=== PATIENT | male | born 1935 | race Caucasian/White ===

== ENCOUNTER 2018-06-15 11:56 | Inpatient (IN) | payer OTHER, MEDICARE ==
--- NOTE | 2018-06-15 12:11 | PDOC ---
History of Present Illness - General Chief Complaint: Weakness Stated Complaint: AMS Time Seen by Provider: 06/15/18 12:10 History Source: Patient, Family Exam Limitations: Dementia - History of Present Illness Initial Comments: 06/15/18 12:40 82 year old male with PMH lewy body dementia, HTN, HLD, atrial fibrillation on Xarelto, BPH, urinary incontinence, CHF, PVD presented to ED for AMS x4 hours. Per pt awoke this morning at 0600 more confused than normal and using more support with walking than normal, she put him back to sleep and then when he awoke again at 0900 he was still altered. She stated his baseline is alert and oriented to person and place, ambulates unassisted with a cane. Pt's admitted to increased urinary frequency, denied dysuria. stated that pt returned to mental baseline when EMS arrived at 1100 today. Pt and denied chest pain, shortness of breath, abdominal pain, nausea, vomiting, cough, blood in stool, weakness, numbness. Allergies: NKDA Past History - Past Medical History Allergies/Adverse Reactions: Allergies Allergy/AdvReac Type Severity Reaction Status Date / Time No Known Allergies Allergy Verified 06/15/18 12:18 Home Medications: Ambulatory Orders Atorvastatin Ca [Lipitor] 10 mg PO HS 06/15/18 Donepezil HCl [Aricept -] 10 mg PO DAILY 06/15/18 Lisinopril [Zestril] 5 mg PO DAILY 06/15/18 Memantine HCl [Namenda -] 10 mg PO BID 06/15/18 Metoprolol Succinate [Toprol Xl] 25 mg PO HS 06/15/18 Metoprolol Succinate [Toprol Xl] 50 mg PO DAILY 06/15/18 Rivaroxaban [Xarelto -] 20 mg PO DAILY 06/15/18 Spironolactone [Aldactone] 25 mg PO DAILY 06/15/18 Tamsulosin HCl [Flomax] 0.8 mg PO DAILY 06/15/18 Anemia: No Asthma: No Cardiac Disorders: Yes (A-FIB) COPD: No CHF: Yes Dementia: (Mild Alzhimer) GI Disorders: Yes (VENTRAL HERNIA) Disorders: Yes (BPH) HTN: Yes Hypercholesterolemia: Yes - Surgical History Cardiac Surgery: Yes (CARDIAC ABLATION JUN 2006) - Immunization History Td Vaccination: Yes TDAP Vaccination: Yes Immunization Up to Date: Yes - Suicide/Smoking/Psychosocial Hx Smoking Status: No Smoking History: Never smoked Number of Cigarettes Smoked Daily: 0 Hx Alcohol Use: Yes (social) Drug/Substance Use Hx: No Substance Use Type: None Review of Systems - Review of Systems Able to Perform ROS?: Yes Comments:: 06/15/18 13:18 General: admitted to generalized weakness. denied fever, chills, night sweats. HEENT: denied sore throat, rhinorrhea, ear pain. Heart: denied chest pain, palpitations, syncope, lower extremity swelling, diaphoresis. Respiratory: denied shortness of breath, cough, sputum production, hemoptysis. Abdomen: denied abdominal pain, nausea, vomiting, diarrhea, constipation, blood in stool. : admitted to increased urinary frequency, urinary incontinence. denied dysuria, hematuria, flank pain. Back: denied back pain. Musculoskeletal: denied joint pain, muscle pain, joint swelling. Neurological: admitted to AMS. denied headache, dizziness, numbness, tingling, weakness. Skin: denied rash, laceration, abrasion. *Physical Exam - Physical Exam Comments: 06/15/18 13:19 Constitutional: Well-nourished, Well-developed, appearing stated age. HEENT: head is normocephalic, atraumatic. EOMI. PERRLA. Neck: supple. Full ROM. Heart: regular rhythm. no murmurs, rubs or gallops. Lungs: clear to auscultation bilaterally. no crackles, rhonchi or wheezing. no stridor. Abdomen: soft, nontender. increased bowel sounds. no rebound, guarding, masses. Extremities: Peripheral pulses intact. No lower extremity edema. Neurological: Alert. Oriented x3. CN2-12 intact. 5/5 strength all extremities. Full sensation all extremities and bilateral face. Finger to nose normal. Gait normal. Psych: awake, alert, oriented x3. Follows commands. Answers questions appropriately. ED Treatment Course - LABORATORY CBC & Chemistry Diagram: 06/16/18 05:45 06/16/18 05:45 Medical Decision Making - Medical Decision Making 06/15/18 13:20 82 year old male with above PMH presented to ED for 4 hours of AMS associated with generalized weakness and increased urinary frequency. Initial Vital Signs Temp Pulse Resp BP Pulse Ox 98.4 F 85 16 110/57 L 98 06/15/18 12:00 06/15/18 12:00 06/15/18 12:00 06/15/18 12:00 06/15/18 12:00 Afebrile. No tachycardia. No tachypnea. Mild hypotension. No hypoxia on room air. Labs ordered: CBC, CMP, cardiac enzymes Imaging ordered: CXR, CT head Medications ordered: normal saline bolus 500 cc EKG performed at 1315: rate 60, irregularly irregular, left axis, normal intervals, lateral T wave flattening. Precordial lateral flattening was seen in EKG 05/21/16. CXR report: cardiomegaly. congestive changes. CBC WBC 6.3 K/mm3 (4.0-10.0) 06/15/18 13:15 RBC 4.25 M/mm3 (4.00-5.60) 06/15/18 13:15 Hgb 12.3 GM/dL (11.7-16.9) 06/15/18 13:15 Hct 39.4 % (35.4-49) 06/15/18 13:15 MCV 92.6 fl (80-96) 06/15/18 13:15 MCH 28.9 pg (25.7-33.7) 06/15/18 13:15 MCHC 31.2 g/dl (32.0-35.9) L 06/15/18 13:15 RDW 13.7 % (11.9-15.9) 06/15/18 13:15 Plt Count 143 K/MM3 (134-434) 06/15/18 13:15 MPV 9.1 fl (7.5-11.1) D 06/15/18 13:15 Absolute Neuts (auto) 4.8 K/mm3 (1.5-8.0) 06/15/18 13:15 Neutrophils % 75.4 % (42.8-82.8) 06/15/18 13:15 Lymphocytes % 13.2 % (8-40) 06/15/18 13:15 Monocytes % 9.8 % (3.8-10.2) 06/15/18 13:15 Eosinophils % 1.2 % (0-4.5) 06/15/18 13:15 Basophils % 0.4 % (0-2.0) 06/15/18 13:15 Nucleated RBC % 0 % (0-0) 06/15/18 13:15 No leukocytosis. No anemia. No thrombocytopenia. CMP Sodium 139 mmol/L (136-145) 06/15/18 13:15 Potassium 5.0 mmol/L (3.5-5.1) 06/15/18 13:15 Chloride 104 mmol/L (98-107) 06/15/18 13:15 Carbon Dioxide 30 mmol/L (21-32) 06/15/18 13:15 Anion Gap 5 MMOL/L (8-16) L 06/15/18 13:15 BUN 21 mg/dL (7-18) H 06/15/18 13:15 Creatinine 0.8 mg/dL (0.55-1.3) 06/15/18 13:15 Creat Clearance w eGFR > 60 (>60) 06/15/18 13:15 Random Glucose 62 mg/dL (74-106) L 06/15/18 13:15 Calcium 8.9 mg/dL (8.5-10.1) 06/15/18 13:15 Total Bilirubin 0.5 mg/dL (0.2-1) 06/15/18 13:15 AST 32 U/L (15-37) 06/15/18 13:15 ALT 38 U/L (13-61) 06/15/18 13:15 Alkaline Phosphatase 82 U/L (45-117) 06/15/18 13:15 Creatine Kinase 290 IU/L (26-308) 06/15/18 13:15 Troponin I 0.04 ng/ml (0.00-0.05) 06/15/18 13:15 B-Natriuretic Peptide 2141.7 pg/ml (5-450) H 06/15/18 13:15 Total Protein 6.2 g/dl (6.4-8.2) L 06/15/18 13:15 Albumin 3.4 g/dl (3.4-5.0) 06/15/18 13:15 TSH 1.70 uIU/ml (0.358-3.74) D 06/15/18 13:15 No clinically concerning electrolyte abnormalities. No transaminitis. No BERTA. BUN/Cr>20. - Normal saline 500 cc was ordered CK elevated. Trop 0.04. Mild hypoglycemia. - Pt given orange juice No clinically concerning transaminitis. Mildly elevated BNP. Lower than prior. Normal TSH. Urine Test Results Urine Color Yellow 06/15/18 13:15 Urine Appearance Clear 06/15/18 13:15 Urine pH 6.0 (5.0-8.0) 06/15/18 13:15 Ur Specific [place] 1.021 (1.010-1.035) 06/15/18 13:15 Urine Protein Negative (NEGATIVE) 06/15/18 13:15 Urine Glucose (UA) Negative (NEGATIVE) 06/15/18 13:15 Urine Ketones Negative (NEGATIVE) 06/15/18 13:15 Urine Blood Negative (NEGATIVE) 06/15/18 13:15 Urine Nitrite Negative (NEGATIVE) 06/15/18 13:15 Urine Bilirubin Negative (<2.0 mg/dL) 06/15/18 13:15 Ur Leukocyte Esterase Trace (NEGATIVE) 06/15/18 13:15 Ur Epithelial Cells Moderate /HPF (FEW) 06/15/18 13:15 Urine Bacteria Rare /hpf (NONE SEEN) 06/15/18 13:15 Urine Mucus Rare 06/15/18 13:15 WBC=5 No evidence of UTI. 06/15/18 15:11 Pt son's now arrived, stated over the last 10 days patient has been becoming increasingly generally weak, has began to defecate on himself. They stated he has been waxing and waning in his mental status, and they would like him to be admitted to be evaluated for placement in a nursing facility. 06/15/18 16:49 CT head report: moderate volume loss and ventricular dilation. moderate periventricular chronic microvascular ischemic changes. multiple lucent foci in the superior sagittal sinus, posterioly suspicious for air. no mass lesion, gross acute infarct, or ICH. no midline shift. 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 - No neck stiffness or neck pain - No headache - Pt does not clinically appear to have meningitis. No need for LP at this time. - Unknown source of air. 06/15/18 17:49 Admitting team requests abdominal XR for constipation. Above ordered. Repeat EKG at 1733: rate 64, irregularly irregular rhythm, left axis, no acute ST changes from prior. - Pending repeat cardiac enzymes. Repeat troponin 0.04. *DC/Admit/Observation/Transfer Diagnosis at time of Disposition: Generalized weakness, Lewy body dementia, Altered mental status - Discharge Dispostion Condition at time of disposition: Stable Decision to Admit order: Yes - Referrals - Patient Instructions - Post Discharge Activity
[2018-06-15 12:17] VITALS: BMI 26.1
[2018-06-15] MEDS ORDERED: SODIUM CHLORIDE 1,000 ML IV STA (13:21)
[2018-06-15 13:45] LABS: BASO % 0.4 % (0-2.0); EOS % 1.2 % (0-4.5); HEMATOCRIT 39.4 % (35.4-49); HEMOGLOBIN 12.3 GM/dL (11.7-16.9); LYMPH % 13.2 % (8-40); MCH 28.9 pg (25.7-33.7); MCHC 31.2 g/dl (32.0-35.9); MEAN CELL VOLUME 92.6 fl (80-96); MEAN PLT VOLUME 9.1 fl (7.5-11.1); MONO % 9.8 % (3.8-10.2); NEUT % 75.4 % (42.8-82.8); PLATELET COUNT 143 K/MM3 (134-434); RBC 4.25 M/mm3 (4.00-5.60); RDW 13.7 % (11.9-15.9); WHITE BLOOD COUNT 6.3 K/mm3 (4.0-10.0)
--- NOTE | 2018-06-15 13:55 | PDOC ---
Attending Attestation - Resident Resident Name: Ángela Chris - ED Attending Attestation I have performed the following: I have examined & evaluated the patient, The case was reviewed & discussed with the resident, I agree w/resident's findings & plan, Exceptions are as noted - HPI HPI: 82 yo M history dementia, HTN, HL, atrial fibrillation, BPH, CHF, PVD presents with AMS for 4 hours. As per patient was confused this morning. He is back at baseline at present. He has had increased urinary frequency recently. No other complaints. - Physicial Exam PE: GENERAL: Awake, alert, and fully oriented, in no acute distress HEAD: No signs of trauma EYES: PERRLA, EOMI, sclera anicteric, conjunctiva clear ENT: Auricles normal inspection, hearing grossly normal, nares patent, oropharynx clear without exudates. Moist mucosa NECK: Normal ROM, supple, no lymphadenopathy, JVD, or masses LUNGS: Breath sounds equal, clear to auscultation bilaterally. No wheezes, and no crackles HEART: Regular rate and rhythm, normal S1 and S2, no murmurs, rubs or gallops ABDOMEN: Soft, nontender, normoactive bowel sounds. No guarding, no rebound. No masses EXTREMITIES: Normal range of motion, no edema. No clubbing or cyanosis. No cords, erythema, or tenderness NEUROLOGICAL: Cranial nerves II through XII grossly intact. Normal speech. Motor and sensation intact. SKIN: Warm, Dry, normal turgor, no rashes or lesions noted. - Medical Decision Making Pt with AMS, recent inc urinary frequency. Patient is poor historian at baseline , most of history obtained from his . Will obtain AMS workup including labs , CXR, CTH, and UA.
[2018-06-15 14:00] LABS: INR 1.06 (0.83-1.09); PROTHROMBIN TIME (PATIENT) 12.5 SEC (9.7-13.0)
[2018-06-15 14:03] LABS: ACTIVATED PTT 30.1 SECONDS (25.2-36.5)
[2018-06-15 14:21] LABS: ALBUMIN 3.4 g/dl (3.4-5.0); ALK PHOS 82 U/L (45-117); ANION GAP 5 MMOL/L (8-16); BILIRUBIN,TOTAL 0.5 mg/dL (0.2-1); BLOOD UREA NITROGEN 21 mg/dL (7-18); CALCIUM 8.9 mg/dL (8.5-10.1); CHLORIDE 104 mmol/L (98-107); CO2 30 mmol/L (21-32); CREATININE 0.8 mg/dL (0.55-1.3); GLUCOSE,RANDOM 62 mg/dL (74-106); SGOT/AST 32 U/L (15-37); SGPT/ALT 38 U/L (13-61); SODIUM 139 mmol/L (136-145); TOT PROT 6.2 g/dl (6.4-8.2)
[2018-06-15 14:37] LABS: URINE APPEARANCE CLEAR; URINE BILIRUBIN NEGATIVE (<2.0 mg/dL); URINE COLOR YELLOW; URINE GLUCOSE (UA) NEGATIVE (NEGATIVE); URINE KETONE NEGATIVE (NEGATIVE); URINE LEUK ESTERASE TRACE (NEGATIVE); URINE NITRITE NEGATIVE (NEGATIVE); URINE PROTEIN NEGATIVE (NEGATIVE)
[2018-06-15 14:54] LABS: EPI CELLS MODERATE /HPF (FEW); URINE BACTERIA RARE /hpf (NONE SEEN); URINE HYALINE CAST 1 /lpf; URINE MUCUS RARE
--- NOTE | 2018-06-15 17:14 | EKG ---
Test Reason : Blood Pressure : / mmHG Vent. Rate : 060 BPM Atrial Rate : 057 BPM P-R Int : 000 ms QRS Dur : 104 ms QT Int : 434 ms P-R-T Axes : 000 -54 149 degrees QTc Int : 434 ms ATRIAL FIBRILLATION LEFT AXIS DEVIATION ANTERIOR INFARCT (CITED ON OR BEFORE 15-JUN-2018) ABNORMAL ECG WHEN COMPARED WITH ECG OF 21-MAY-2016 08:36, ATRIAL FIBRILLATION HAS REPLACED ATRIAL FLUTTER QRS AXIS SHIFTED LEFT Confirmed by BRIAN BAUER MD ([id number]) on 06/15/2018 5:14:43 PM Referred By: Confirmed By:BRIAN BAUER MD
--- NOTE | 2018-06-15 18:10 | PN ---
Teaching Attending Note Name of Resident: Sherin Alan ATTENDING PHYSICIAN STATEMENT I saw and evaluated the patient. I reviewed the resident's note and discussed the case with the resident. I agree with the resident's findings and plan as documented. SUBJECTIVE: Patient is lying in bed with no acute distress. no shortness of breath. As per sons, patient has been having fecal incontinence and urinary incontinence over 1 year. Also has been constipated for over 3 days and having watery stool. no fever or chills. no shortness of breath, no nausea or vomiting. OBJECTIVE: Vital Signs Temperature 97.7 F 06/15/18 17:08 Pulse Rate 64 06/15/18 17:08 Respiratory Rate 16 06/15/18 12:00 Blood Pressure 120/57 L 06/15/18 17:08 O2 Sat by Pulse Oximetry (%) 90 L 06/15/18 17:08 Initial Vital Signs Temp Pulse Resp BP Pulse Ox 98.4 F 85 16 110/57 L 98 06/15/18 12:00 06/15/18 12:00 06/15/18 12:00 06/15/18 12:00 06/15/18 12:00 CBCD WBC 6.3 K/mm3 (4.0-10.0) 06/15/18 13:15 RBC 4.25 M/mm3 (4.00-5.60) 06/15/18 13:15 Hgb 12.3 GM/dL (11.7-16.9) 06/15/18 13:15 Hct 39.4 % (35.4-49) 06/15/18 13:15 MCV 92.6 fl (80-96) 06/15/18 13:15 MCHC 31.2 g/dl (32.0-35.9) L 06/15/18 13:15 RDW 13.7 % (11.9-15.9) 06/15/18 13:15 Plt Count 143 K/MM3 (134-434) 06/15/18 13:15 MPV 9.1 fl (7.5-11.1) D 06/15/18 13:15 GENERAL: Awake, alert, and fully oriented, in no acute distress HEAD: No signs of trauma EYES: PERRLA, EOMI, sclera anicteric, conjunctiva clear ENT: Auricles normal inspection, hearing grossly normal, nares patent, oropharynx clear without exudates. Moist mucosa NECK: Normal ROM, supple, no lymphadenopathy, JVD, or masses LUNGS: Breath sounds equal, clear to auscultation bilaterally. No wheezes, and no crackles HEART: Regular rate and rhythm, normal S1 and S2, no murmurs, rubs or gallops ABDOMEN: Soft, nontender, normoactive bowel sounds. No guarding, no rebound. No masses appreciated. EXTREMITIES: Normal range of motion, no edema. No clubbing or cyanosis. No cords, erythema, or tenderness NEUROLOGICAL: Cranial nerves II through XII grossly intact. Normal speech. Motor and sensation intact. SKIN: Warm, Dry, normal turgor, no rashes or lesions noted. Rectal exam: positive for sphintor tone, positive for stool. CMP Sodium 139 mmol/L (136-145) 06/15/18 13:15 Potassium 5.0 mmol/L (3.5-5.1) 06/15/18 13:15 Chloride 104 mmol/L (98-107) 06/15/18 13:15 Carbon Dioxide 30 mmol/L (21-32) 06/15/18 13:15 Anion Gap 5 MMOL/L (8-16) L 06/15/18 13:15 BUN 21 mg/dL (7-18) H 06/15/18 13:15 Creatinine 0.8 mg/dL (0.55-1.3) 06/15/18 13:15 Creat Clearance w eGFR > 60 (>60) 06/15/18 13:15 Random Glucose 62 mg/dL (74-106) L 06/15/18 13:15 Calcium 8.9 mg/dL (8.5-10.1) 06/15/18 13:15 Total Bilirubin 0.5 mg/dL (0.2-1) 06/15/18 13:15 AST 32 U/L (15-37) 06/15/18 13:15 ALT 38 U/L (13-61) 06/15/18 13:15 Alkaline Phosphatase 82 U/L (45-117) 06/15/18 13:15 Total Protein 6.2 g/dl (6.4-8.2) L 06/15/18 13:15 Albumin 3.4 g/dl (3.4-5.0) 06/15/18 13:15 CARDIAC ENZYMES Creatine Kinase 290 IU/L (26-308) 06/15/18 13:15 Troponin I 0.04 ng/ml (0.00-0.05) 06/15/18 13:15 Current Medications Generic Name Dose Route Start Last Admin Trade Name Freq PRN Reason Stop Dose Admin Heparin Sodium (Porcine) 5,000 unit 06/15/18 22:00 Heparin - SQ TID GILDA Home Medications Medication Instructions Recorded Atorvastatin Ca [Lipitor] 10 mg PO HS 06/15/18 Donepezil HCl [Aricept -] 10 mg PO DAILY 06/15/18 Furosemide [Lasix] 10 mg PO ASDIR 06/15/18 Lisinopril [Zestril] 5 mg PO DAILY 06/15/18 Memantine HCl [Namenda -] 10 mg PO BID 06/15/18 Metoprolol Succinate [Toprol Xl] 25 mg PO HS 06/15/18 Metoprolol Succinate [Toprol Xl] 50 mg PO DAILY 06/15/18 Nitroglycerin [Nitrostat] 0.4 mg SL PRN 06/15/18 Rivaroxaban [Xarelto -] 20 mg PO DAILY 06/15/18 Spironolactone [Aldactone] 25 mg PO DAILY 06/15/18 Tamsulosin HCl [Flomax] 0.4 mg PO DAILY 06/15/18 ASSESSMENT AND PLAN: Patient is a 82 year old male, with a significant past medical history of Lewy body dementia/Alzhimers, AFIB on xarelto, bioprosthetic aortic valve, PAD s/p angioplasty, HTN, HLD, RLE DVT 5yrs ago, venous stasis, ventral hernia and BPH, who presents to the emergency department with worsening of Dementia. # Acute change of mental status due to worsening of dementia (lewy bodies) , neuro consult Dr cerna, will get Ua , urine cx for possible UTI #Acute fecal incontinence , rectal exam is soft stool, but able to feel his sphinctor. will get an abdominal Xray to r/o constipation. #Hx of chronic combined systolic with diastolic CHF exacerbation continue home meds. #Hx of BPH continue flomax #Hx of Afib with HR controlled on Xarelto continue , cont Toprol XL 50mg in am and 25mg qhs #HTN continue Spirinolactone , Lisiniprol, Imdur and toprol XL continue DVT Px: Xarelto
--- NOTE | 2018-06-15 18:32 | HP ---
CHIEF COMPLAINT: AMS PCP: HISTORY OF PRESENT ILLNESS: Patient is an 82 y/o male with a history of lewey body dementia, HTN, HLD, afib , BPH, CHF, and PVD who presents for AMS. Per patients family around 6 pm he was not acting himself. He was falling over and not making sense when he talks. Per patients family this has been ongoing and is getting worse. Over the last few months patient has not been able to control his urination. Over the last week, patient has also been having fecal incontinence. Per patients he has been reporting right hip and back pain that also began about a week ago. patient thinks he has a bowel movement every day but is not sure. Patient is ambulatory with a cane. Patient denies chest pain, nausea, vomiting, shortness of breath or diarrhea. ER course was notable for: (1) head CT (2) NS (3) Recent Travel: PAST MEDICAL HISTORY: DM, HTN, HLD, afib, BPH, CHF, PVD, RLE DVT 5 years ago PAST SURGICAL HISTORY: cardiac ablation 2005 Social History: Smoking: never Alcohol: denies Drugs: denies Family History: Allergies No Known Allergies Allergy (Verified 06/15/18 12:18) HOME MEDICATIONS: Home Medications Medication Instructions Recorded Atorvastatin Ca [Lipitor] 10 mg PO HS 06/15/18 Donepezil HCl [Aricept -] 10 mg PO DAILY 06/15/18 Furosemide [Lasix] 10 mg PO ASDIR 06/15/18 Lisinopril [Zestril] 5 mg PO DAILY 06/15/18 Memantine HCl [Namenda -] 10 mg PO BID 06/15/18 Metoprolol Succinate [Toprol Xl] 25 mg PO HS 06/15/18 Metoprolol Succinate [Toprol Xl] 50 mg PO DAILY 06/15/18 Nitroglycerin [Nitrostat] 0.4 mg SL PRN 06/15/18 Rivaroxaban [Xarelto -] 20 mg PO DAILY 06/15/18 Spironolactone [Aldactone] 25 mg PO DAILY 06/15/18 Tamsulosin HCl [Flomax] 0.4 mg PO DAILY 06/15/18 REVIEW OF SYSTEMS CONSTITUTIONAL: Absent: fever, chills, diaphoresis, generalized weakness, malaise, loss of appetite, weight change HEENT: Absent: rhinorrhea, nasal congestion, throat pain, throat swelling, difficulty swallowing, mouth swelling, ear pain, eye pain, visual changes CARDIOVASCULAR: Absent: chest pain, syncope, palpitations, irregular heart rate, lightheadedness , peripheral edema RESPIRATORY: Absent: cough, shortness of breath, dyspnea with exertion, orthopnea, wheezing, stridor, hemoptysis GASTROINTESTINAL: fecal incontinence Absent: abdominal pain, abdominal distension, nausea, vomiting, diarrhea, constipation, melena, hematochezia GENITOURINARY: urinary incontinence Absent: dysuria, frequency, urgency, hesitancy, hematuria, flank pain, genital pain MUSCULOSKELETAL: back pain Absent: myalgia, arthralgia, joint swelling, neck pain SKIN: Absent: rash, itching, pallor HEMATOLOGIC/IMMUNOLOGIC: Absent: easy bleeding, easy bruising, lymphadenopathy, frequent infections ENDOCRINE: Absent: unexplained weight gain, unexplained weight loss, heat intolerance, cold intolerance NEUROLOGIC: Absent: headache, focal weakness or paresthesias, dizziness, unsteady gait, seizure, mental status changes, bladder or bowel incontinence PSYCHIATRIC: Absent: anxiety, depression, suicidal or homicidal ideation, hallucinations. PHYSICAL EXAMINATION Vital Signs - 24 hr 06/15/18 06/15/18 12:00 17:08 Temperature 98.4 F 97.7 F Pulse Rate 85 Pulse Rate [ 64 Left Radial] Respiratory 16 Rate Blood Pressure 110/57 L Blood Pressure 120/57 L [Left Arm] O2 Sat by Pulse 98 90 L Oximetry (%) GENERAL: Awake and aler HEAD: Normal with no signs of trauma. EYES: Pupils equal, round and reactive to light, extraocular movements intact, sclera anicteric, conjunctiva clear. No lid lag. EARS, NOSE, THROAT: Moist mucous membranes. LUNGS: Breath sounds equal, clear to auscultation bilaterally. No wheezes, and no crackles. No accessory muscle use. HEART: Regular rate and rhythm, normal S1 and S2 without murmur, rub or gallop. ABDOMEN: Soft, nontender, not distended, normoactive bowel sounds, no guarding, no rebound, no masses. MUSCULOSKELETAL: Normal range of motion at all joints. No bony deformities or tenderness. No CVA tenderness. No back tenderness to palpation RECTAL: sphincter tone in tact, sensation in tact, no fissures noted LOWER EXTREMITIES: 2+ pulses, warm, well-perfused. No calf tenderness. No peripheral edema. NEUROLOGICAL: Cranial nerves II-XII intact. Normal speech. Normal gait. PSYCHIATRIC: Cooperative. Good eye contact. Appropriate mood and affect. SKIN: Warm, dry, normal turgor, no rashes or lesions noted, normal capillary refill. Laboratory Results - last 24 hr CBC, BMP 06/15/18 13:15 06/15/18 13:15 Urine Test Results Urine Color Yellow 06/15/18 13:15 Urine Appearance Clear 06/15/18 13:15 Urine pH 6.0 (5.0-8.0) 06/15/18 13:15 Ur Specific [place] 1.021 (1.010-1.035) 06/15/18 13:15 Urine Protein Negative (NEGATIVE) 06/15/18 13:15 Urine Glucose (UA) Negative (NEGATIVE) 06/15/18 13:15 Urine Ketones Negative (NEGATIVE) 06/15/18 13:15 Urine Blood Negative (NEGATIVE) 06/15/18 13:15 Urine Nitrite Negative (NEGATIVE) 06/15/18 13:15 Urine Bilirubin Negative (<2.0 mg/dL) 06/15/18 13:15 Ur Leukocyte Esterase Trace (NEGATIVE) 06/15/18 13:15 Ur Epithelial Cells Moderate /HPF (FEW) 06/15/18 13:15 Urine Bacteria Rare /hpf (NONE SEEN) 06/15/18 13:15 Urine Mucus Rare 06/15/18 13:15 ASSESSMENT/PLAN: Patient is an 82 y/o male with a history of lewey body dementia, HTN, HLD, afib , BPH, CHF, and PVD who presents for AMS. #AMS 2/2 to worsening dementia vs r/o UTI - Head CT: moderate atrophy with microvascular ischemia, small air pockets in superior sagital sinus - f/u Neuro Dr Bowen - UA: trace LE, f/u Urine Culture - no evidence of infxn - TSH: 1.70 - trop: 0.04 #Constipation - no saddle anesthesia, unlikely cord compression - f/u abd Xray: stool retention - water enema ordered and senna/docusate #CHF - BNP elevated 2141 - CXR: large heart, congestive changes - 05/17/16 Echo: LV normal, LV sys fxn mildly reduced, mild global hypokinesis, RV normal, significant - spironolactone 25 mg daily - metoprolol 50 daily, 25 at night - atorvastatin 10 mg daily #afib - continue xarelto 20 mg po dialy #dementia - continue memantine 10 mg BID - continue donepezil 10 mg po daily #BPH - continue tamsulosin 0.8 daily #HTN - continue lisinopril 5 mg po daily #DVT ppx - Xarelto Dispo: f/u PT, snf placement needed Visit type - Emergency Visit Emergency Visit: Yes ED Registration Date: 06/15/18 Care time: The patient presented to the Emergency Department on the above date and was hospitalized for further evaluation of their emergent condition. - New Patient This patient is new to me today: Yes Date on this admission: 06/15/18 - Critical Care Critical Care patient: No
[2018-06-15] MEDS: metoPROLOL SUCCINATE 25 MG TAB.SR.24H (FP) PO SCH (21:25)
[2018-06-15] MEDS: MEMANTINE HCL 10 MG TABLET (FP) PO SCH (21:25)
[2018-06-15] MEDS: ATORVASTATIN CA 10 MG TABLET (FP) PO SCH (21:25)
[2018-06-15] MEDS: SENNOSIDES/DOCUSATE COMBO (SENNA PLUS) TABLET (UD) PO SCH (21:25)
[2018-06-15] MEDS ORDERED: SENNOSIDES/DOCUSATE COMBO (SENNA PLUS) TABLET (UD) PO SCH (22:00)
[2018-06-15] MEDS ORDERED: HEPARIN NA (PORCINE) 5,000 UNITS/ML 1ML VIAL SQ SCH (22:00)
[2018-06-15] MEDS ORDERED: DONEPEZIL HCL 10 MG TABLET (FP) PO SCH (22:00)
[2018-06-16 06:53] LABS: BASO % 0.5 % (0-2.0); EOS % 1.6 % (0-4.5); HEMATOCRIT 40.1 % (35.4-49); HEMOGLOBIN 12.8 GM/dL (11.7-16.9); LYMPH % 18.1 % (8-40); MCH 29.4 pg (25.7-33.7); MCHC 32.1 g/dl (32.0-35.9); MEAN CELL VOLUME 91.5 fl (80-96); MEAN PLT VOLUME 9.2 fl (7.5-11.1); MONO % 9.5 % (3.8-10.2); NEUT % 70.3 % (42.8-82.8); PLATELET COUNT 145 K/MM3 (134-434); RBC 4.38 M/mm3 (4.00-5.60); RDW 13.9 % (11.9-15.9); WHITE BLOOD COUNT 7.1 K/mm3 (4.0-10.0)
[2018-06-16 08:06] LABS: ALBUMIN 3.6 g/dl (3.4-5.0); ALK PHOS 85 U/L (45-117); ANION GAP 8 MMOL/L (8-16); BILIRUBIN,TOTAL 0.8 mg/dL (0.2-1); BLOOD UREA NITROGEN 18 mg/dL (7-18); CALCIUM 8.9 mg/dL (8.5-10.1); CHLORIDE 103 mmol/L (98-107); CO2 27 mmol/L (21-32); CREATININE 0.9 mg/dL (0.55-1.3); GLUCOSE,RANDOM 91 mg/dL (74-106); MAGNESIUM 2.1 mg/dL (1.8-2.4); PHOSPHOROUS 3.4 mg/dL (2.5-4.9); POTASSIUM 4.6 mmol/L (3.5-5.1); SGOT/AST 39 U/L (15-37); SGPT/ALT 46 U/L (13-61); SODIUM 138 mmol/L (136-145); TOT PROT 6.3 g/dl (6.4-8.2)
--- NOTE | 2018-06-16 09:09 | PN ---
Teaching Attending Note Name of Resident: Sherin Waqas ATTENDING PHYSICIAN STATEMENT I saw and evaluated the patient. I reviewed the resident's note and discussed the case with the resident. I agree with the resident's findings and plan as documented. SUBJECTIVE: Patien tis feeling better with no acute distress, no nausea or vomiting. OBJECTIVE: Vital Signs Temperature 98.4 F 06/16/18 08:47 Pulse Rate 74 06/16/18 08:47 Respiratory Rate 18 06/16/18 08:47 Blood Pressure 126/71 06/16/18 08:47 O2 Sat by Pulse Oximetry (%) 96 06/15/18 21:00 GENERAL: Awake, alert, in no acute distress HEAD: No signs of trauma EYES: PERRLA, EOMI, sclera anicteric, conjunctiva clear ENT: Auricles normal inspection, hearing grossly normal, oropharynx clear ,MMM. NECK: Normal ROM, supple, no lymphadenopathy, JVD, or masses LUNGS: Breath sounds equal, clear to auscultation bilaterally. No wheezes, and no crackles HEART: Regular rate and rhythm, normal S1 and S2, no murmurs, rubs or gallops ABDOMEN: Soft, nontender, normoactive bowel sounds. No guarding, no rebound. No masses appreciated. EXTREMITIES: Normal range of motion, no edema. No clubbing or cyanosis. No cords, erythema, or tenderness NEUROLOGICAL: Cranial nerves II through XII grossly intact. Normal speech. Motor and sensation intact. SKIN: Warm, Dry, normal turgor, no rashes or lesions noted. Rectal exam: positive for sphintor tone, positive for stool. Psycho: positive for dementia CBCD WBC 7.1 K/mm3 (4.0-10.0) 06/16/18 05:45 RBC 4.38 M/mm3 (4.00-5.60) 06/16/18 05:45 Hgb 12.8 GM/dL (11.7-16.9) 06/16/18 05:45 Hct 40.1 % (35.4-49) 06/16/18 05:45 MCV 91.5 fl (80-96) 06/16/18 05:45 MCHC 32.1 g/dl (32.0-35.9) 06/16/18 05:45 RDW 13.9 % (11.9-15.9) 06/16/18 05:45 Plt Count 145 K/MM3 (134-434) 06/16/18 05:45 MPV 9.2 fl (7.5-11.1) 06/16/18 05:45 CMP Sodium 138 mmol/L (136-145) 06/16/18 05:45 Potassium 4.6 mmol/L (3.5-5.1) 06/16/18 05:45 Chloride 103 mmol/L (98-107) 06/16/18 05:45 Carbon Dioxide 27 mmol/L (21-32) 06/16/18 05:45 Anion Gap 8 MMOL/L (8-16) 06/16/18 05:45 BUN 18 mg/dL (7-18) 06/16/18 05:45 Creatinine 0.9 mg/dL (0.55-1.3) 06/16/18 05:45 Creat Clearance w eGFR > 60 (>60) 06/16/18 05:45 Random Glucose 91 mg/dL (74-106) 06/16/18 05:45 Calcium 8.9 mg/dL (8.5-10.1) 06/16/18 05:45 Total Bilirubin 0.8 mg/dL (0.2-1) 06/16/18 05:45 AST 39 U/L (15-37) H 06/16/18 05:45 ALT 46 U/L (13-61) 06/16/18 05:45 Alkaline Phosphatase 85 U/L (45-117) 06/16/18 05:45 Total Protein 6.3 g/dl (6.4-8.2) L 06/16/18 05:45 Albumin 3.6 g/dl (3.4-5.0) 06/16/18 05:45 CARDIAC ENZYMES Creatine Kinase 298 IU/L (26-308) 06/15/18 17:09 Troponin I 0.04 ng/ml (0.00-0.05) 06/15/18 17:09 Current Medications Generic Name Dose Route Start Last Admin Trade Name Freq PRN Reason Stop Dose Admin Atorvastatin Calcium 10 mg 06/15/18 22:00 06/15/18 21:25 Lipitor - PO 10 mg HS GILDA Administration Donepezil HCl 10 mg 06/16/18 10:00 Aricept - PO DAILY GILDA Lisinopril 5 mg 06/16/18 10:00 Prinivil PO DAILY [facility] Memantine 10 mg 06/15/18 22:00 06/15/18 21:25 Namenda - PO 10 mg BID [facility] Administration Metoprolol Succinate 25 mg 06/15/18 22:00 06/15/18 21:25 Toprol Xl - PO 25 mg HS [facility] Administration Metoprolol Succinate 50 mg 06/16/18 10:00 Toprol Xl - PO DAILY [facility] Polyethylene Glycol 17 gm 06/16/18 10:00 Miralax (For Daily Use) - PO DAILY [facility] Rivaroxaban 20 mg 06/16/18 18:00 Xarelto - PO DAILY@1800 [facility] Senna/Docusate Sodium 1 tablet 06/15/18 22:00 06/15/18 21:25 Pericolace - PO 1 tablet BID [facility] Administration Spironolactone 25 mg 06/16/18 10:00 Aldactone - PO DAILY [facility] Tamsulosin HCl 0.8 mg 06/16/18 08:30 Flomax - PO DAILY@0830 [facility] Home Medications Medication Instructions Recorded Atorvastatin Ca [Lipitor] 10 mg PO HS 06/15/18 Donepezil HCl [Aricept -] 10 mg PO DAILY 06/15/18 Lisinopril [Zestril] 5 mg PO DAILY 06/15/18 Memantine HCl [Namenda -] 10 mg PO BID 06/15/18 Metoprolol Succinate [Toprol Xl] 25 mg PO HS 06/15/18 Metoprolol Succinate [Toprol Xl] 50 mg PO DAILY 06/15/18 Rivaroxaban [Xarelto -] 20 mg PO DAILY 06/15/18 Spironolactone [Aldactone] 25 mg PO DAILY 06/15/18 Tamsulosin HCl [Flomax] 0.8 mg PO DAILY 06/15/18 Urine Test Results Urine Color Yellow 06/15/18 13:15 Urine Appearance Clear 06/15/18 13:15 Urine pH 6.0 (5.0-8.0) 06/15/18 13:15 Ur Specific [place] 1.021 (1.010-1.035) 06/15/18 13:15 Urine Protein Negative (NEGATIVE) 06/15/18 13:15 Urine Glucose (UA) Negative (NEGATIVE) 06/15/18 13:15 Urine Ketones Negative (NEGATIVE) 06/15/18 13:15 Urine Blood Negative (NEGATIVE) 06/15/18 13:15 Urine Nitrite Negative (NEGATIVE) 06/15/18 13:15 Urine Bilirubin Negative (<2.0 mg/dL) 06/15/18 13:15 Ur Leukocyte Esterase Trace (NEGATIVE) 06/15/18 13:15 Ur Epithelial Cells Moderate /HPF (FEW) 06/15/18 13:15 Urine Bacteria Rare /hpf (NONE SEEN) 06/15/18 13:15 Urine Mucus Rare 06/15/18 13:15 Abdominal Xray: possible sigmoid Volvolus ASSESSMENT AND PLAN: Patient is a 82 year old male, with a significant PMHx of Lewy body dementia/ Alzhimers, AFIB on xarelto, bioprosthetic aortic valve, PAD s/p angioplasty, HTN , HLD, RLE DVT 5 yrs ago, venous stasis, ventral hernia and BPH, who presents to the ED. with acute change of mental status with worsening of Dementia. # Acute Constipation , Abdominal Xray reported possible sigmoid Volvolus , will get Ct of abdomen to r/o Volvulus. Will GI for consult. # Acute change of mental status due to worsening of dementia (lewy bodies) , neuro consult Dr cerna, check Ucx for possible UTI #Acute fecal incontinence due to having constipation , rectal exam on 06/15/2018 is soft stool, but patient is able to feel his sphinctor. # Hx of chronic combined systolic with diastolic CHF exacerbation # Hx of BPH on flomax 0.8mg # Hx of Afib with HR controlled on Xarelto continue, cont Toprol XL 50mg in am and 25mg qhs # HTN continue Spirinolactone, Lisinipril, Imdur and Toprol XL continue DVT Px: Xarelto
--- NOTE | 2018-06-16 09:43 | PN ---
Physical Exam: SUBJECTIVE: Patient is an 82 y/o male with a history of lewey body dementia, HTN , HLD, afib, BPH, CHF, and PVD who is here for fecal incontinence. Patient was disruptive overnight and had to be put on a sudha vest. Per nurse patient did not have a bowel movement overnight. Patient has no complaints. OBJECTIVE: Vital Signs Temperature 98.4 F 06/16/18 08:47 Pulse Rate 74 06/16/18 08:47 Respiratory Rate 18 06/16/18 09:00 Blood Pressure 126/71 06/16/18 08:47 O2 Sat by Pulse Oximetry (%) 96 06/16/18 09:00 GENERAL: Awake and alert LUNGS: Breath sounds equal, clear to auscultation bilaterally. No wheezes, and no crackles. No accessory muscle use. HEART: Regular rate and rhythm, normal S1 and S2 without murmur, rub or gallop. ABDOMEN: tenderness to left upper quadrant , non distended MUSCULOSKELETAL: No back tenderness to palpation RECTAL: sphincter tone in tact, sensation in tact, no fissures noted, loose stool on finger LOWER EXTREMITIES: 2+ pulses, warm, well-perfused. No calf tenderness. No peripheral edema. stasis changes, 1+ pitting edema PSYCHIATRIC: Cooperative. Good eye contact. Appropriate mood and affect. SKIN: Warm, dry, normal turgor, no rashes or lesions noted, normal capillary refill. CBC, BMP 06/16/18 05:45 06/16/18 05:45 Active Medications Atorvastatin Calcium (Lipitor -) 10 mg PO HS [facility] Last Admin: 06/15/18 21:25 Dose: 10 mg Donepezil HCl (Aricept -) 10 mg PO DAILY [facility] Lisinopril (Prinivil) 5 mg PO DAILY [facility] Memantine (Namenda -) 10 mg PO BID [facility] Last Admin: 06/15/18 21:25 Dose: 10 mg Metoprolol Succinate (Toprol Xl -) 25 mg PO HS [facility] Last Admin: 06/15/18 21:25 Dose: 25 mg Metoprolol Succinate (Toprol Xl -) 50 mg PO DAILY [facility] Polyethylene Glycol (Miralax (For Daily Use) -) 17 gm PO DAILY [facility] Rivaroxaban (Xarelto -) 20 mg PO DAILY@1800 [facility] Senna/Docusate Sodium (Pericolace -) 1 tablet PO BID [facility] Last Admin: 06/15/18 21:25 Dose: 1 tablet Spironolactone (Aldactone -) 25 mg PO DAILY [facility] Tamsulosin HCl (Flomax -) 0.8 mg PO DAILY@0830 [facility] ASSESSMENT/PLAN: Patient is an 82 y/o male with a history of lewey body dementia, HTN, HLD, afib , BPH, CHF, and PVD who is here for AMS and constipation #Constipation, r/o volvulous - no saddle anesthesia, unlikely cord compression - patient did not have bowel movement overnight per nurse - f/u abd Xray: stool retention, possible sigmoid volulous - water enema ordered and senna/docusate - Surgery Dr. Vivas, no indication for surgery at this time - f/u GI, Dr. Leone - f/u abd/pelvis CT : no evidence of sigmoid volvulous, small left pleural effusion, probable cardiomegaly #AMS 2/2 to worsening dementia vs r/o UTI - Head CT: moderate atrophy with microvascular ischemia, small air pockets in superior sagital sinus - Neuro Dr Bowen: suspect acute exacerbtion due to intercurrent illness, will follow up - UA: trace LE, f/u Urine Culture - no evidence of infxn - TSH: 1.70 - trop: 0.04 #CHF - BNP elevated 2141 - CXR: large heart, congestive changes - 05/17/16 Echo: LV normal, LV sys fxn mildly reduced, mild global hypokinesis, RV normal, significant - spironolactone 25 mg daily - metoprolol 50 daily, 25 at night - atorvastatin 10 mg daily #afib - continue xarelto 20 mg po dialy #dementia - continue memantine 10 mg BID - continue donepezil 10 mg po daily #BPH - continue tamsulosin 0.8 daily #HTN - continue lisinopril 5 mg po daily #DVT ppx - Xarelto Dispo: f/u PT, long-term placement needed, discuss with social work tomorrow Visit type - Emergency Visit Emergency Visit: No - New Patient This patient is new to me today: No - Critical Care Critical Care patient: No
[2018-06-16] MEDS ORDERED: POLYETHYLENE GLYCOL 3350 119 GM BTL PO SCH (10:00)
[2018-06-16] MEDS: SENNOSIDES/DOCUSATE COMBO (SENNA PLUS) TABLET (UD) PO SCH ×2 (10:09→23:05)
[2018-06-16] MEDS: LISINOPRIL 5 MG TABLET (FP) PO SCH (10:09)
[2018-06-16] MEDS: TAMSULOSIN HCL 0.4 MG CAP PO SCH (10:09)
[2018-06-16] MEDS: MEMANTINE HCL 10 MG TABLET (FP) PO SCH ×2 (10:09→23:05)
[2018-06-16] MEDS: SPIRONOLACTONE 25 MG TABLET (FP) PO SCH (10:10)
[2018-06-16] MEDS: DONEPEZIL HCL 10 MG TABLET (FP) PO SCH (10:10)
--- NOTE | 2018-06-16 14:06 | CON.NEURO ---
Consult Consult Specialty:: Neurology Referred by:: Dr. Sherin Alan Reason for Consultation:: Altered Mental Status - History of Present Illness Chief Complaint: Acute Progression of deficits History of Present Illness: Patient with diagnosis of Lewy Body Dementia, and subacute worsening of symtpoms ofr 2days, wiht increased imbalance and confusion. He has no complaints but poor insight. 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 Cardio/Vascular: Yes: AFIB, CHF, HTN, Hyperlipdemia, Other (PAD) - Past Surgical History Past Surgical History: Yes: Valve Replacement - Alcohol/Substance Use Hx Alcohol Use: Yes (social) - Smoking History Smoking history: Never smoked Aproximately how many cigarettes per day: 0 - Social History ADL: Family Assistance History of Recent Travel: No Home Medications - Allergies Allergies/Adverse Reactions: Allergies Allergy/AdvReac Type Severity Reaction Status Date / Time No Known Allergies Allergy Verified 06/15/18 12:18 - Home Medications Home Medications: Ambulatory Orders Atorvastatin Ca [Lipitor] 10 mg PO HS 06/15/18 Donepezil HCl [Aricept -] 10 mg PO DAILY 06/15/18 Lisinopril [Zestril] 5 mg PO DAILY 06/15/18 Memantine HCl [Namenda -] 10 mg PO BID 06/15/18 Metoprolol Succinate [Toprol Xl] 25 mg PO HS 06/15/18 Metoprolol Succinate [Toprol Xl] 50 mg PO DAILY 06/15/18 Rivaroxaban [Xarelto -] 20 mg PO DAILY 06/15/18 Spironolactone [Aldactone] 25 mg PO DAILY 06/15/18 Tamsulosin HCl [Flomax] 0.8 mg PO DAILY 06/15/18 Physical Exam-Neuro Vital Signs: Vital Signs Temperature 98.0 F 06/16/18 13:37 Pulse Rate 87 06/16/18 13:37 Respiratory Rate 18 06/16/18 13:37 Blood Pressure 117/70 06/16/18 13:37 O2 Sat by Pulse Oximetry (%) 96 06/16/18 09:00 Constitutional: Yes: Well Nourished Labs: CBC, BMP 06/16/18 05:45 06/16/18 05:45 INR, PTT INR 1.06 (0.83-1.09) 06/15/18 13:15 - Neuro Exam Level Of Consciousness: Yes: Alert, Oriented to Person (When asked where he is he says "I'm where I'm supposed to be." When asked year, he says "4") Eyes: Yes: JACEK Speech: WNL Cranial Nerves II-XII Intact: Yes DTR's: 0 Left Achilles, 0 Right Achilles, 2+ Left Bicep, 2+ Right Bicep, 2+ Left Tricep, 2+ Right Tricep, 2+ Left Brachioradialis, 2+ Right Brachioradialis Babinski: Absent Response to light touch: Normal Response to pain prick: Normal Movement Disorders: Myoclonus Motor Strength: 5/5: Left Arm, Right Arm, Left Leg, Right Leg Gait: Deferred Imaging - Results Cat Scan: Report Reviewed, Image Reviewed (white matter ischemic changes) Problem List - Problems (1) Altered mental status Code(s): R41.82 - ALTERED MENTAL STATUS, UNSPECIFIED (2) Lewy body dementia Code(s): G31.83 - DEMENTIA WITH LEWY BODIES; F02.80 - DEMENTIA IN OTH DISEASES CLASSD ELSWHR W/O BEHAVRL DISTURB Assessment/Plan Suspect acute exacerbation due to intercurrent illness. Would evaluate for acute medical problem worsening mentation/neurologic function. Will f/u with you. Thanks.
--- NOTE | 2018-06-16 15:20 | EKG ---
Test Reason : Blood Pressure : / mmHG Vent. Rate : 064 BPM Atrial Rate : 075 BPM P-R Int : 000 ms QRS Dur : 100 ms QT Int : 450 ms P-R-T Axes : 000 -43 157 degrees QTc Int : 464 ms ATRIAL FIBRILLATION LEFT AXIS DEVIATION ANTEROLATERAL INFARCT (CITED ON OR BEFORE 15-JUN-2018) ABNORMAL ECG WHEN COMPARED WITH ECG OF 15-JUN-2018 13:15, NO SIGNIFICANT CHANGE WAS FOUND Confirmed by JESSICA GRANADO, LIZ ([id number]) on 06/16/2018 3:20:19 PM Referred By: Confirmed By:LIZ LOPEZ MD
--- NOTE | 2018-06-16 15:28 | CONSULT ---
- Consultation REQUESTING PROVIDER: CONSULT REQUEST: We have been asked to surgically evaluate this patient for ( volvulus). PCP:Urbano Carvajal HISTORY OF PRESENT ILLNESS: 82 y/o M w/ PMHx lewey body dementia, HTN, HLD, afib, BPH, CHF, and PVD now a/w AMS. Pt had abdominal xray done for constipation which revealed a ?volvulus. Per pts family, pt has been having fecal incontinence over the past week. No h/ o abdominal sx, no h/o prior SBO. At baseline, pt is ambulatory with a cane. PMHx: as above PSHx: cardiac ablation 2005 Home Medications Medication Instructions Recorded Atorvastatin Ca [Lipitor] 10 mg PO HS 06/15/18 Donepezil HCl [Aricept -] 10 mg PO DAILY 06/15/18 Lisinopril [Zestril] 5 mg PO DAILY 06/15/18 Memantine HCl [Namenda -] 10 mg PO BID 06/15/18 Metoprolol Succinate [Toprol Xl] 25 mg PO HS 06/15/18 Metoprolol Succinate [Toprol Xl] 50 mg PO DAILY 06/15/18 Rivaroxaban [Xarelto -] 20 mg PO DAILY 06/15/18 Spironolactone [Aldactone] 25 mg PO DAILY 06/15/18 Tamsulosin HCl [Flomax] 0.8 mg PO DAILY 06/15/18 Allergies Allergy/AdvReac Type Severity Reaction Status Date / Time No Known Allergies Allergy Verified 06/15/18 12:18 PHYSICAL EXAM: GENERAL: Awake, alert, in no acute distress. HEAD: Normal with no signs of trauma. ABDOMEN: Soft, minimally distended, nontender to palpitation. Normoactive bowel sounds, no guarding, no rebound, no masses. Vital Signs Temperature 98.0 F 06/16/18 13:37 Pulse Rate 87 06/16/18 13:37 Respiratory Rate 18 06/16/18 13:37 Blood Pressure 117/70 06/16/18 13:37 O2 Sat by Pulse Oximetry (%) 96 06/16/18 09:00 Lab Results WBC 7.1 K/mm3 (4.0-10.0) 06/16/18 05:45 RBC 4.38 M/mm3 (4.00-5.60) 06/16/18 05:45 Hgb 12.8 GM/dL (11.7-16.9) 06/16/18 05:45 Hct 40.1 % (35.4-49) 06/16/18 05:45 MCV 91.5 fl (80-96) 06/16/18 05:45 MCHC 32.1 g/dl (32.0-35.9) 06/16/18 05:45 RDW 13.9 % (11.9-15.9) 06/16/18 05:45 Plt Count 145 K/MM3 (134-434) 06/16/18 05:45 Sodium 138 mmol/L (136-145) 06/16/18 05:45 Potassium 4.6 mmol/L (3.5-5.1) 06/16/18 05:45 Chloride 103 mmol/L (98-107) 06/16/18 05:45 Carbon Dioxide 27 mmol/L (21-32) 06/16/18 05:45 Anion Gap 8 MMOL/L (8-16) 06/16/18 05:45 BUN 18 mg/dL (7-18) 06/16/18 05:45 Creatinine 0.9 mg/dL (0.55-1.3) 06/16/18 05:45 Random Glucose 91 mg/dL (74-106) 06/16/18 05:45 Calcium 8.9 mg/dL (8.5-10.1) 06/16/18 05:45 Blood Type B POSITIVE 06/15/18 21:49 Antibody Screen Negative 06/15/18 13:15 INR 1.06 (0.83-1.09) 06/15/18 13:15 ABX (06/16/18): Focally dilated loop of bowel, ?sigmoid volvulus. CT A/P (06/16/18): no sigmoid volvulus, colonic retention. A/P: 82 y/o M w/ PMHx lewey body dementia, HTN, HLD, afib, BPH, CHF, and PVD now a/w AMS. Pt had abdominal xray done for constipation which revealed a ? volvulus. CT scan with no evidence of sigmoid volvulus -No concern for acute surgical abdomen at this time -Reconsult prn pt seen and examined with attending Dr Vivas
--- NOTE | 2018-06-16 16:28 | CON.GI ---
Consult Consult Specialty:: GI Referred by:: Medicine Reason for Consultation:: ? sigmoid volvulus - History of Present Illness Chief Complaint: Altered mental status History of Present Illness: 82M with Lewy Body dementia, AF on NOAC presenting for altered mental status. GI asked to consult regarding x-ray finding of dilated loop of small bowel, possible sigmoid volvulus. Has since had CT done that showed no volvulus but colon full of stool. Reportedly has been having issues with fecal incontinence this week per . No abdominal pain, no N/V. 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 Cardio/Vascular: Yes: AFIB, CHF, HTN, Hyperlipdemia, Other (PAD) - Past Surgical History Past Surgical History: Yes: Valve Replacement - Alcohol/Substance Use Hx Alcohol Use: Yes (social) - Smoking History Smoking history: Never smoked Aproximately how many cigarettes per day: 0 - Social History ADL: Family Assistance History of Recent Travel: No Home Medications - Allergies Allergies/Adverse Reactions: Allergies Allergy/AdvReac Type Severity Reaction Status Date / Time No Known Allergies Allergy Verified 06/15/18 12:18 - Home Medications Home Medications: Ambulatory Orders Atorvastatin Ca [Lipitor] 10 mg PO HS 06/15/18 Donepezil HCl [Aricept -] 10 mg PO DAILY 06/15/18 Lisinopril [Zestril] 5 mg PO DAILY 06/15/18 Memantine HCl [Namenda -] 10 mg PO BID 06/15/18 Metoprolol Succinate [Toprol Xl] 25 mg PO HS 06/15/18 Metoprolol Succinate [Toprol Xl] 50 mg PO DAILY 06/15/18 Rivaroxaban [Xarelto -] 20 mg PO DAILY 06/15/18 Spironolactone [Aldactone] 25 mg PO DAILY 06/15/18 Tamsulosin HCl [Flomax] 0.8 mg PO DAILY 06/15/18 Review of Systems Unable to obtain ROS, reason: dementia Physical Exam-GI Vital Signs: Vital Signs Temperature 98.0 F 06/16/18 13:37 Pulse Rate 87 06/16/18 13:37 Respiratory Rate 18 06/16/18 13:37 Blood Pressure 117/70 06/16/18 13:37 O2 Sat by Pulse Oximetry (%) 96 06/16/18 09:00 Constitutional: Yes: Well Nourished, No Distress, Calm Eyes: Yes: Conjunctiva Clear HENT: Yes: Atraumatic, Normocephalic Neck: Yes: Trachea Midline Cardiovascular: Yes: Regular Rate and Rhythm Respiratory: Yes: CTA Bilaterally ...Palpate: Yes: Soft. No: Tenderness ...Rectal Exam: Yes: Other (no impaction, soft brown stool) Labs: CBC, BMP 06/16/18 05:45 06/16/18 05:45 INR, PTT INR 1.06 (0.83-1.09) 06/15/18 13:15 Imaging - Results Cat Scan: Report Reviewed (no volvulus, colon full of stool) Assessment/Plan 82M admitted with altered mental status. GI consulted for concern of sigmoid volvulus, but not present on CT. Suspect fecal incontinence may have been secondary to overflow in the setting of chronic constipation. Would favor starting Miralax 17g daily in an effort to prevent further episodes of incontinence. Please reconsult as needed.
[2018-06-16] MEDS ORDERED: PT OWN MED DRAWER 7, Y5N ONE (17:57)
[2018-06-16] MEDS: RIVAROXABAN 20 MG TABLET PO SCH (18:04)
[2018-06-16] MEDS: metoPROLOL SUCCINATE 25 MG TAB.SR.24H (FP) PO SCH (23:05)
[2018-06-16] MEDS: ATORVASTATIN CA 10 MG TABLET (FP) PO SCH (23:06)
[2018-06-17 06:38] LABS: HEMATOCRIT 36.9 % (35.4-49); HEMOGLOBIN 11.9 GM/dL (11.7-16.9); MCH 29.5 pg (25.7-33.7); MCHC 32.2 g/dl (32.0-35.9); MEAN CELL VOLUME 91.4 fl (80-96); MEAN PLT VOLUME 8.9 fl (7.5-11.1); PLATELET COUNT 126 K/MM3 (134-434); RBC 4.03 M/mm3 (4.00-5.60); RDW 13.7 % (11.9-15.9); WHITE BLOOD COUNT 6.6 K/mm3 (4.0-10.0)
[2018-06-17 06:47] LABS: ANION GAP 8 MMOL/L (8-16); BLOOD UREA NITROGEN 15 mg/dL (7-18); CALCIUM 8.6 mg/dL (8.5-10.1); CHLORIDE 104 mmol/L (98-107); CO2 28 mmol/L (21-32); CREATININE 0.8 mg/dL (0.55-1.3); GLUCOSE,RANDOM 91 mg/dL (74-106); POTASSIUM 4.2 mmol/L (3.5-5.1); SODIUM 140 mmol/L (136-145)
--- NOTE | 2018-06-17 08:24 | PN ---
Teaching Attending Note Name of Resident: Sherin Alan ATTENDING PHYSICIAN STATEMENT I saw and evaluated the patient. I reviewed the resident's note and discussed the case with the resident. I agree with the resident's findings and plan as documented. SUBJECTIVE: Patient is pleasantly confused. OBJECTIVE: Vital Signs Temperature 97.6 F 06/17/18 06:00 Pulse Rate 64 06/17/18 06:00 Respiratory Rate 18 06/17/18 06:00 Blood Pressure 98/49 L 06/17/18 06:00 O2 Sat by Pulse Oximetry (%) 96 06/16/18 21:00 GENERAL: Awake, alert, in no acute distress HEAD: No signs of trauma EYES: PERRLA, EOMI, sclera anicteric, conjunctiva clear ENT: Auricles normal inspection, hearing grossly normal, oropharynx clear ,MMM. NECK: Normal ROM, supple, no lymphadenopathy, JVD, or masses LUNGS: Breath sounds equal, clear to auscultation bilaterally. No wheezes, and no crackles HEART: Regular rate and rhythm, normal S1 and S2, no murmurs, rubs or gallops ABDOMEN: Soft, nontender, normoactive bowel sounds. No guarding, no rebound. No masses appreciated. EXTREMITIES: Normal range of motion, no edema. No clubbing or cyanosis. No cords, erythema, or tenderness NEUROLOGICAL: Cranial nerves II through XII grossly intact. Normal speech. Motor and sensation intact. SKIN: Warm, Dry, normal turgor, no rashes or lesions noted. Rectal exam: positive for sphintor tone, positive for stool. Psycho: positive for dementia CBCD WBC 6.6 K/mm3 (4.0-10.0) 06/17/18 06:00 RBC 4.03 M/mm3 (4.00-5.60) 06/17/18 06:00 Hgb 11.9 GM/dL (11.7-16.9) 06/17/18 06:00 Hct 36.9 % (35.4-49) 06/17/18 06:00 MCV 91.4 fl (80-96) 06/17/18 06:00 MCHC 32.2 g/dl (32.0-35.9) 06/17/18 06:00 RDW 13.7 % (11.9-15.9) 06/17/18 06:00 Plt Count 126 K/MM3 (134-434) L 06/17/18 06:00 MPV 8.9 fl (7.5-11.1) 06/17/18 06:00 CMP Sodium 140 mmol/L (136-145) 06/17/18 06:00 Potassium 4.2 mmol/L (3.5-5.1) 06/17/18 06:00 Chloride 104 mmol/L (98-107) 06/17/18 06:00 Carbon Dioxide 28 mmol/L (21-32) 06/17/18 06:00 Anion Gap 8 MMOL/L (8-16) 06/17/18 06:00 BUN 15 mg/dL (7-18) 06/17/18 06:00 Creatinine 0.8 mg/dL (0.55-1.3) 06/17/18 06:00 Creat Clearance w eGFR > 60 (>60) 06/17/18 06:00 Random Glucose 91 mg/dL (74-106) 06/17/18 06:00 Calcium 8.6 mg/dL (8.5-10.1) 06/17/18 06:00 Total Bilirubin 0.8 mg/dL (0.2-1) 06/16/18 05:45 AST 39 U/L (15-37) H 06/16/18 05:45 ALT 46 U/L (13-61) 06/16/18 05:45 Alkaline Phosphatase 85 U/L (45-117) 06/16/18 05:45 Total Protein 6.3 g/dl (6.4-8.2) L 06/16/18 05:45 Albumin 3.6 g/dl (3.4-5.0) 06/16/18 05:45 CARDIAC ENZYMES Creatine Kinase 298 IU/L (26-308) 06/15/18 17:09 Troponin I 0.04 ng/ml (0.00-0.05) 06/15/18 17:09 Current Medications Generic Name Dose Route Start Last Admin Trade Name Freq PRN Reason Stop Dose Admin Atorvastatin Calcium 10 mg 06/15/18 22:00 06/16/18 23:06 Lipitor - PO 10 mg HS GILDA Administration Donepezil HCl 10 mg 06/16/18 10:00 06/16/18 10:10 Aricept - PO 10 mg DAILY GILDA Administration Lisinopril 5 mg 06/16/18 10:00 06/16/18 10:09 Prinivil PO 5 mg DAILY GILDA Administration Memantine 10 mg 06/15/18 22:00 06/16/18 23:05 Namenda - PO 10 mg BID GILDA Administration Metoprolol Succinate 25 mg 06/15/18 22:00 06/16/18 23:05 Toprol Xl - PO 25 mg HS GILDA Administration Metoprolol Succinate 50 mg 06/16/18 10:00 06/16/18 10:09 Toprol Xl - PO 50 mg DAILY GILDA Administration Polyethylene Glycol 17 gm 06/17/18 10:00 Miralax (For Daily Use) - PO DAILY [facility] Rivaroxaban 20 mg 06/16/18 18:00 06/16/18 18:04 Xarelto - PO 20 mg DAILY@1800 [facility] Administration Senna/Docusate Sodium 1 tablet 06/15/18 22:00 06/16/18 23:05 Pericolace - PO 1 tablet BID GILDA Administration Spironolactone 25 mg 06/16/18 10:00 06/16/18 10:10 Aldactone - PO 25 mg DAILY GILDA Administration Tamsulosin HCl 0.8 mg 06/16/18 08:30 06/16/18 10:09 Flomax - PO 0.8 mg DAILY@0830 [facility] Administration Home Medications Medication Instructions Recorded Atorvastatin Ca [Lipitor] 10 mg PO HS 06/15/18 Donepezil HCl [Aricept -] 10 mg PO DAILY 06/15/18 Lisinopril [Zestril] 5 mg PO DAILY 06/15/18 Memantine HCl [Namenda -] 10 mg PO BID 06/15/18 Metoprolol Succinate [Toprol Xl] 25 mg PO HS 06/15/18 Metoprolol Succinate [Toprol Xl] 50 mg PO DAILY 06/15/18 Rivaroxaban [Xarelto -] 20 mg PO DAILY 06/15/18 Spironolactone [Aldactone] 25 mg PO DAILY 06/15/18 Tamsulosin HCl [Flomax] 0.8 mg PO DAILY 06/15/18 Urine Test Results Urine Color Yellow 06/15/18 13:15 Urine Appearance Clear 06/15/18 13:15 Urine pH 6.0 (5.0-8.0) 12/09/18 13:15 Ur Specific [place] 1.021 (1.010-1.035) 06/15/18 13:15 Urine Protein Negative (NEGATIVE) 06/15/18 13:15 Urine Glucose (UA) Negative (NEGATIVE) 06/15/18 13:15 Urine Ketones Negative (NEGATIVE) 06/15/18 13:15 Urine Blood Negative (NEGATIVE) 06/15/18 13:15 Urine Nitrite Negative (NEGATIVE) 06/15/18 13:15 Urine Bilirubin Negative (<2.0 mg/dL) 06/15/18 13:15 Ur Leukocyte Esterase Trace (NEGATIVE) 06/15/18 13:15 Ur Epithelial Cells Moderate /HPF (FEW) 06/15/18 13:15 Urine Bacteria Rare /hpf (NONE SEEN) 06/15/18 13:15 Urine Mucus Rare 06/15/18 13:15 Abdominal Xray: possible sigmoid Volvolus ASSESSMENT AND PLAN: Patient is a 82 year old male, with a significant PMHx of Lewy body dementia/ Alzhimers, AFIB on xarelto, bioprosthetic aortic valve, PAD s/p angioplasty, HTN , HLD, RLE DVT 5 yrs ago, venous stasis, ventral hernia and BPH, who presents to the ED. with acute change of mental status with worsening of Dementia. # Acute Constipation , Abdominal Xray reported possible sigmoid Volvolus ,Ct of abdomen : negative for Volvulus. GI consult.appreciated. Will increase Miralx to 2x per day. # Acute change of mental status due to worsening of dementia (lewy bodies) , neuro consult Dr cerna, No UTI, neuro seen the patient and recommended Depakote to stabilize his mood. follow B12 and Methylmalonic acid level. #Acute fecal incontinence due to having constipation , rectal exam on 06/15/2018 is soft stool, but patient is able to feel his sphinctor. increased Miralx 2x per day # Hx of chronic combined systolic with diastolic CHF exacerbation # Hx of BPH on flomax 0.8mg # Hx of Afib with HR controlled on Xarelto continue, cont Toprol XL 50mg in am and 25mg qhs # HTN continue Spirinolactone, Lisinipril, Imdur and Toprol XL continue DVT Px: Xarelto possible discharge to rehab. in am for placement.
[2018-06-17] MEDS: TAMSULOSIN HCL 0.4 MG CAP PO SCH (09:11)
[2018-06-17] MEDS: SENNOSIDES/DOCUSATE COMBO (SENNA PLUS) TABLET (UD) PO SCH ×2 (09:11→21:03)
[2018-06-17] MEDS: MEMANTINE HCL 10 MG TABLET (FP) PO SCH ×2 (09:11→21:03)
[2018-06-17] MEDS: LISINOPRIL 5 MG TABLET (FP) PO SCH (09:11)
[2018-06-17] MEDS: SPIRONOLACTONE 25 MG TABLET (FP) PO SCH (09:12)
[2018-06-17] MEDS: DONEPEZIL HCL 10 MG TABLET (FP) PO SCH (09:12)
[2018-06-17] MEDS ORDERED: POLYETHYLENE GLYCOL 3350 119 GM BTL PO SCH (10:00)
--- NOTE | 2018-06-17 10:10 | PN ---
Progress Note, Physician History of Present Illness: Patient with diagnosis of Lewy Body Dementia, and subacute worsening of symtpoms ofr 2days, wiht increased imbalance and confusion. He has no complaints but poor insight. Concern of volvulus was ruled out, but instead patient suffering from severe constipation, with overflow incontinence. Whether this is contributing to his clincial worsenening through discomfort remains to be seen, though no evidence of acute neurologic problem or acute infectious process to date. - Current Medication List Current Medications: Active Medications Atorvastatin Calcium (Lipitor -) 10 mg PO HS [facility] [place] Last Admin: 06/16/18 23:06 Dose: 10 mg Donepezil HCl (Aricept -) 10 mg PO DAILY [facility] Last Admin: 06/17/18 09:12 Dose: 10 mg Lisinopril (Prinivil) 5 mg PO DAILY [facility] [place] Last Admin: 06/17/18 09:11 Dose: 5 mg Memantine (Namenda -) 10 mg PO BID [facility] [place] Last Admin: 06/17/18 09:11 Dose: 10 mg Metoprolol Succinate (Toprol Xl -) 25 mg PO HS [facility] [place] Last Admin: 06/16/18 23:05 Dose: 25 mg Metoprolol Succinate (Toprol Xl -) 50 mg PO DAILY [facility] [place] Last Admin: 06/17/18 09:11 Dose: 50 mg Polyethylene Glycol (Miralax (For Daily Use) -) 17 gm PO DAILY [facility] [place] Last Admin: 06/17/18 09:12 Dose: 17 grams Rivaroxaban (Xarelto -) 20 mg PO DAILY@1800 [facility] [place] Last Admin: 06/16/18 18:04 Dose: 20 mg Senna/Docusate Sodium (Pericolace -) 1 tablet PO BID [facility] [place] Last Admin: 06/17/18 09:11 Dose: 1 tablet Spironolactone (Aldactone -) 25 mg PO DAILY [facility] [place] Last Admin: 06/17/18 09:12 Dose: 25 mg Tamsulosin HCl (Flomax -) 0.8 mg PO DAILY@0830 [facility] [place] Last Admin: 06/17/18 09:11 Dose: 0.8 mg - Objective Vital Signs: Vital Signs Temperature 97.4 F L 06/17/18 08:58 Pulse Rate 64 06/17/18 08:58 Respiratory Rate 18 06/17/18 08:58 Blood Pressure 114/51 L 06/17/18 08:58 O2 Sat by Pulse Oximetry (%) 96 06/17/18 08:45 Neurological: Yes: Other (calm, remains a bit confused) Labs: CBC, BMP 06/17/18 06:00 06/17/18 06:00 INR, PTT INR 1.06 (0.83-1.09) 06/15/18 13:15 Problem List - Problems (1) Altered mental status Code(s): R41.82 - ALTERED MENTAL STATUS, UNSPECIFIED (2) Lewy body dementia Code(s): G31.83 - DEMENTIA WITH LEWY BODIES; F02.80 - DEMENTIA IN OTH DISEASES CLASSD ELSWHR W/O BEHAVRL DISTURB Assessment/Plan May appear a bit worse due to discomfort due to severe constipation and being full of stool. Would like to see how he does as this problem is dealt with as no other explanation appears evident. Will also check B12/Methylmalonic acid as well.
--- NOTE | 2018-06-17 10:44 | PN ---
Physical Exam: SUBJECTIVE: Patient is an 82 y/o male with a history of lewey body dementia, HTN, HLD, afib , BPH, CHF, and PVD who is here for fecal incontinence. Patient has yet to have a bowel movement, nursing was unable to do enema. Patient reports no complaints. OBJECTIVE: Vital Signs Temperature 97.4 F L 06/17/18 08:58 Pulse Rate 64 06/17/18 08:58 Respiratory Rate 18 06/17/18 08:58 Blood Pressure 114/51 L 06/17/18 08:58 O2 Sat by Pulse Oximetry (%) 96 06/17/18 08:45 GENERAL: Awake and alert LUNGS: Breath sounds equal, clear to auscultation bilaterally. No wheezes, and no crackles. No accessory muscle use. HEART: Regular rate and rhythm, normal S1 and S2 without murmur, rub or gallop. ABDOMEN: tenderness to left upper quadrant , non distended MUSCULOSKELETAL: No back tenderness to palpation RECTAL: sphincter tone in tact, sensation in tact, no fissures noted, loose stool on finger LOWER EXTREMITIES: 2+ pulses, warm, well-perfused. No calf tenderness. No peripheral edema. stasis changes, 1+ pitting edema PSYCHIATRIC: Cooperative. Good eye contact. Appropriate mood and affect. SKIN: Warm, dry, normal turgor, no rashes or lesions noted, normal capillary refill. CBC, BMP 06/17/18 06:00 06/17/18 06:00 Active Medications Atorvastatin Calcium (Lipitor -) 10 mg PO HS [facility] Last Admin: 06/16/18 23:06 Dose: 10 mg Donepezil HCl (Aricept -) 10 mg PO DAILY [facility] Last Admin: 06/17/18 09:12 Dose: 10 mg Lisinopril (Prinivil) 5 mg PO DAILY [facility] Last Admin: 06/17/18 09:11 Dose: 5 mg Memantine (Namenda -) 10 mg PO BID [facility] Last Admin: 06/17/18 09:11 Dose: 10 mg Metoprolol Succinate (Toprol Xl -) 25 mg PO HS [facility] Last Admin: 06/16/18 23:05 Dose: 25 mg Metoprolol Succinate (Toprol Xl -) 50 mg PO DAILY [facility] Last Admin: 06/17/18 09:11 Dose: 50 mg Polyethylene Glycol (Miralax (For Daily Use) -) 17 gm PO DAILY [facility] Last Admin: 06/17/18 09:12 Dose: 17 grams Rivaroxaban (Xarelto -) 20 mg PO DAILY@1800 [facility] Last Admin: 06/16/18 18:04 Dose: 20 mg Senna/Docusate Sodium (Pericolace -) 1 tablet PO BID [facility] Last Admin: 06/17/18 09:11 Dose: 1 tablet Spironolactone (Aldactone -) 25 mg PO DAILY [facility] Last Admin: 06/17/18 09:12 Dose: 25 mg Tamsulosin HCl (Flomax -) 0.8 mg PO DAILY@0830 [facility] Last Admin: 06/17/18 09:11 Dose: 0.8 mg ASSESSMENT/PLAN: Patient is an 82 y/o male with a history of lewey body dementia, HTN, HLD, afib , BPH, CHF, and PVD who is here for AMS and constipation #Constipation, r/o volvulous - no saddle anesthesia, unlikely cord compression - patient did not have bowel movement overnight per nurse - f/u abd Xray: stool retention, possible sigmoid volulous - water enema ordered and senna/docusate - Miralax 17 gm BID - Surgery Dr. Vivas, no indication for surgery at this time - f/u GI, Dr. Leone: suspect fecal incontinence - f/u abd/pelvis CT : no evidence of sigmoid volvulous, small left pleural effusion, probable cardiomegaly #AMS 2/2 to worsening dementia vs r/o UTI - Head CT: moderate atrophy with microvascular ischemia, small air pockets in superior sagital sinus - Neuro Dr Bowen: suspect acute exacerbtion due to intercurrent illness, will follow up -f/u VB12 and methylmalonic acid #CHF - BNP elevated 2141 - CXR: large heart, congestive changes - 05/17/16 Echo: LV normal, LV sys fxn mildly reduced, mild global hypokinesis, RV normal, significant - spironolactone 25 mg daily - metoprolol 50 daily, 25 at night - atorvastatin 10 mg daily - appear euvolemic #afib - continue xarelto 20 mg po dialy #dementia - continue memantine 10 mg BID - continue donepezil 10 mg po daily #BPH - continue tamsulosin 0.8 daily #HTN - continue lisinopril 5 mg po daily #DVT ppx - Xarelto Dispo: patient can be discharged tomorrow to [facility], patient must remain off sudha vest for 24 hours so that he can go to a [facility] Visit type - Emergency Visit Emergency Visit: No - New Patient This patient is new to me today: No - Critical Care Critical Care patient: No
[2018-06-17] MEDS ORDERED: PT OWN MED DRAWER 7, Y5N ONE (17:04)
[2018-06-17] MEDS: RIVAROXABAN 20 MG TABLET PO SCH (17:22)
[2018-06-17] MEDS ORDERED: DIVALPROEX SODIUM 250 MG TABLET E.C. PO ONE (21:00)
[2018-06-17] MEDS: metoPROLOL SUCCINATE 25 MG TAB.SR.24H (FP) PO SCH (21:03)
[2018-06-17] MEDS: ATORVASTATIN CA 10 MG TABLET (FP) PO SCH (21:03)
[2018-06-18] MEDS: POLYETHYLENE GLYCOL 3350 119 GM BTL PO SCH ×2 (06:12→09:56)
[2018-06-18] MEDS: MEMANTINE HCL 10 MG TABLET (FP) PO SCH (09:55)
[2018-06-18] MEDS: LISINOPRIL 5 MG TABLET (FP) PO SCH (09:55)
[2018-06-18] MEDS: SENNOSIDES/DOCUSATE COMBO (SENNA PLUS) TABLET (UD) PO SCH (09:55)
[2018-06-18] MEDS: TAMSULOSIN HCL 0.4 MG CAP PO SCH (09:55)
[2018-06-18] MEDS: SPIRONOLACTONE 25 MG TABLET (FP) PO SCH (09:56)
[2018-06-18] MEDS: DONEPEZIL HCL 10 MG TABLET (FP) PO SCH (09:56)
--- NOTE | 2018-06-18 10:50 | DS ---
Physical Exam: SUBJECTIVE: Patient is an 82 y/o male with a history of lewey body dementia, HTN, HLD, afib , BPH, CHF, and PVD who is here for fecal incontinence. Patient has yet to have a bowel movement, nursing was unable to do enema. Patient reports no complaints. OBJECTIVE: Vital Signs Temperature 98.2 F 06/18/18 06:11 Pulse Rate 68 06/18/18 06:11 Respiratory Rate 18 06/18/18 06:11 Blood Pressure 122/66 06/18/18 06:11 O2 Sat by Pulse Oximetry (%) 96 06/17/18 08:45 PHYSICAL EXAM GENERAL: Awake and alert LUNGS: Breath sounds equal, clear to auscultation bilaterally. No wheezes, and no crackles. No accessory muscle use. HEART: Regular rate and rhythm, normal S1 and S2 without murmur, rub or gallop. ABDOMEN: tenderness to left upper quadrant , non distended MUSCULOSKELETAL: No back tenderness to palpation RECTAL: sphincter tone in tact, sensation in tact, no fissures noted, loose stool on finger LOWER EXTREMITIES: 2+ pulses, warm, well-perfused. No calf tenderness. No peripheral edema. stasis changes, 1+ pitting edema PSYCHIATRIC: Cooperative. Good eye contact. Appropriate mood and affect. SKIN: Warm, dry, normal turgor, no rashes or lesions noted, normal capillary refill. LABS Laboratory Results - last 24 hr 06/17/18 06:00 Vitamin B12 400 HOSPITAL COURSE: Date of Admission:06/15/18 Patient was admitted to the hospital for AMS. Neurologist Dr. Wilson evaluated the patient, and was instructed to follow up with him as a patient to monitor his lewey body dementia. VB12 normal, methylmalonic acid pending. Patient constipated upon evaluation. Chest CT ruled out volvulous. Patient given senna, docusate and miralax and had a bowel movement. Surgery and GI evaluated patient, not candidate for surgery. Patient stable, discharged to [facility]. abd Xray: stool retention, possible sigmoid volulous abd/pelvis CT : no evidence of sigmoid volvulous, small left pleural effusion, probable cardiomegaly Head CT: moderate atrophy with microvascular ischemia, small air pockets in superior sagital sinus Date of Discharge: 06/18/18 Minutes to complete discharge: 40 Discharge Summary Reason For Visit: LEWY BODY DEMENTIA / AMS Current Active Problems Constipation (Acute) Altered mental status (Chronic) Generalized weakness (Chronic) Lewy body dementia (Chronic) Condition: Improved - Instructions Diet, Activity, Other Instructions: You were admitted to the hospital for confusion. You were seen by our Neurologist and this confusion is due to your Lewy Body Dementia. You should follow up with the neurologist Dr. Wilson to monitor your lewy body dementia. While you were here you were also found to be constipated. We gave you some medication to help you have a bowel movement and this has resolved. Please continue your home medications as prescribed. Please follow up with your primary care physician within one week. Please return to the Emergency Department if you have any headache, chest pain, nausea, vomiting, shortness of breath, or dizziness. Referrals: Dale Chen MD [Primary Care Provider] - Disposition: LONGTERM FACILITY - Home Medications Comprehensive Discharge Medication List: Ambulatory Orders Atorvastatin Ca [Lipitor] 10 mg PO HS 06/15/18 Donepezil HCl [Aricept -] 10 mg PO DAILY 06/15/18 Lisinopril [Zestril] 5 mg PO DAILY 06/15/18 Memantine HCl [Namenda -] 10 mg PO BID 06/15/18 Metoprolol Succinate [Toprol Xl] 25 mg PO HS 06/15/18 Metoprolol Succinate [Toprol Xl] 50 mg PO DAILY 06/15/18 Rivaroxaban [Xarelto -] 20 mg PO DAILY 06/15/18 Spironolactone [Aldactone] 25 mg PO DAILY 06/15/18 Tamsulosin HCl [Flomax] 0.8 mg PO DAILY 06/15/18 Polyethylene Glycol 3350 [Miralax (For Daily Use) -] 17 gm PO ONCE #1 bottle 06/24 Sennosides [Senna] 8.6 mg PO DAILY #30 tablet 06/18/18 This patient is new to me today: No Emergency Visit: No Critical Care patient: No - Discharge Referral Referred to [facility] Med P.C.: No
[2018-06-18 13:18] VITALS: TEMP 97.7
[2018-06-18 13:19] VITALS: BP 112/56; PULSE 68
--- NOTE | 2018-06-18 18:00 | PN ---
Teaching Attending Note Name of Resident: Sherin Alan ATTENDING PHYSICIAN STATEMENT I saw and evaluated the patient. I reviewed the resident's note and discussed the case with the resident. I agree with the resident's findings and plan as documented. SUBJECTIVE: No complaints . was off vest all night . OBJECTIVE: awake, not oriented, not cooperative CV: RRR Lungs: CTAB ext : no edema ASSESSMENT AND PLAN: 82 y/o man with h/o Lewy body dementia , BIoprosthetic AVR, A fib , on xarelto , HTN, HLP, DVT , BPH , and other medical problems who presented with worsenign JIMMIE and was found to be constipated 1- worsening dementia: cont depakote 2- constipation : bowel regimen ater dc . already stooled all night 3- h/o A fib : cont xarelto and , and BB 4- HTN, cont meds dispo : dc to NH
[2018-06-20 10:12] LABS: METHYLMALONIC ACID- 145 nmol/L (0-378)
== END 2018-06-18 13:29 | DRG 57 ==
LOC: JER 11:56 → JERBED 16:17 → UNDOADMIN 17:42 → J4S 19:43
PROVIDERS: ADMIT Internal Medicine; ATTEND Internal Medicine
DX: G31.83 Neurocognitive disorder with Lewy bodies (principal); I50.42 Chronic combined systolic (congestive) and diastolic (congestive) heart failure; F02.80 Dementia in other diseases classified elsewhere, unspecified severity, without behavioral disturbance, psychotic disturbance, mood disturbance, and anxiety; K59.00 Constipation, unspecified; E78.5 Hyperlipidemia, unspecified; N40.0 Benign prostatic hyperplasia without lower urinary tract symptoms; I48.91 Unspecified atrial fibrillation; I11.0 Hypertensive heart disease with heart failure
CPT/HCPCS: 36415; 70450-TC; 71045-TC-FY; 74019-TC-FY; 74176-TC; 80048; 80053; 81003; 81015; 82550; 82553; 82607; 82947; 83735; 83880; 83921; 84100; 84443; 84484; 85025; 85027; 85610; 85730; 86850; 86900; 86901; 87040; 87086; 93005; 93010; 97116-GP; 97161-GP; 99282-25; J7030

== ENCOUNTER 2019-06-10 20:17 | Emergency (ER) | payer OTHER, MEDICARE ==
--- NOTE | 2019-06-10 20:26 | PDOC ---
Attending Attestation - Resident Resident Name: AlfonzotomHermanYariel - ED Attending Attestation I have performed the following: I have examined & evaluated the patient, The case was reviewed & discussed with the resident, I agree w/resident's findings & plan - HPI HPI: 06/10/19 20:25 see resident hpi - Physicial Exam PE: 06/10/19 20:25 agree with resident exam - Medical Decision Making 06/10/19 20:25 83-year-old male brought in as cardiac arrest, approximate asystolic downtime prior to arrival 30 to 40 minutes without response ACLS initiated in route, patient did receive epinephrine and bicarb IV An ET tube was placed in the field, placement confirmed on arrival Due to persistent asystole, patient's age and confirmed lack of cardiac activity on bedside ultrasound resuscitation efforts were ceased Time of 8:15 PM
[2019-06-10 20:33] VITALS: BP 0/0; BMI 25.8
--- NOTE | 2019-06-10 21:05 | PDOC ---
History of Present Illness - General Chief Complaint: Cardiac Arrest Stated Complaint: CARDIAC ARREST Time Seen by Provider: 06/10/19 20:24 History Source: Patient, EMS Exam Limitations: Clinical Condition, Unresponsive - History of Present Illness Initial Comments: Yomi Victor is an 83 yo M w a hx of [facility], Memphisey body dementia, HTN, HLD, afib, BPH, CHF, and PVD who presents to the [facility] from [facility] as a cardiac arrest. Upon arrival to the ED he was in asystole. Per EMS he was down in asystole for 30 minutes, received multiple rounds of epinephrine, sodium bicarb , and calcium with no identifiable shockable rhythm. CPR was being performed by the Dionicio machine in the ED. Patient came in intubated and we confirmed ET tube placement in room 10 resuscitation bay. When plaed on the monitor he was still in asystole. We performed a bedisde ultrasound which showed cardiac standtill. His glucose was normal. We continued CPR and coding the patient in the ED, gave him another round of epinephrine but he was persistently in asystole, pulseless and we called the time of deat at 8:15. Allergies: None Past surgical history: Cardiac ablation (2005) Social history: No alcohol, tobacco or drug use reported PMD - Dr. Mcfarland Cardiology - Dr. Shaffer and Dr. Martines Surgery - Dr. Garcia Past History - Past Medical History Allergies/Adverse Reactions: Allergies Allergy/AdvReac Type Severity Reaction Status Date / Time No Known Allergies Allergy Verified 06/15/18 12:18 Home Medications: Ambulatory Orders Atorvastatin Ca [Lipitor] 10 mg PO HS 06/15/18 Donepezil HCl [Aricept -] 10 mg PO DAILY 06/15/18 Lisinopril [Zestril] 5 mg PO DAILY 06/15/18 Memantine HCl [Namenda -] 10 mg PO BID 06/15/18 Metoprolol Succinate [Toprol Xl] 25 mg PO HS 06/15/18 Metoprolol Succinate [Toprol Xl] 50 mg PO DAILY 06/15/18 Rivaroxaban [Xarelto -] 20 mg PO DAILY 06/15/18 Spironolactone [Aldactone] 25 mg PO DAILY 06/15/18 Tamsulosin HCl [Flomax] 0.8 mg PO DAILY 06/15/18 Polyethylene Glycol 3350 [Miralax (For Daily Use) -] 17 gm PO ONCE #1 bottle 06/24 Sennosides [Senna] 8.6 mg PO DAILY #30 tablet 06/18/18 Anemia: No Asthma: No Cardiac Disorders: Yes (A-FIB) COPD: No CHF: Yes Dementia: (Mild Alzhimer) GI Disorders: Yes (VENTRAL HERNIA) Disorders: Yes (BPH) HTN: Yes Hypercholesterolemia: Yes - Surgical History Cardiac Surgery: Yes (CARDIAC ABLATION JUN 2006) - Immunization History Td Vaccination: Yes TDAP Vaccination: Yes Immunization Up to Date: Yes - Psycho Social/Smoking Cessation Hx Smoking Status: No Smoking History: Unknown if ever smoked Number of Cigarettes Smoked Daily: 0 Hx Alcohol Use: Yes (social) Drug/Substance Use Hx: No Substance Use Type: None Review of Systems - Review of Systems Able to Perform ROS?: No () *Physical Exam - Vital Signs Last Vital Signs Temp Pulse Resp BP Pulse Ox 0/0 L 06/10/19 20:31 - Physical Exam General Appearance: Yes: Nourished, Other (Intubated, Dionicio device in place) HEENT: positive: Pale Conjunctivae, Other (Fixed and dilated pupils) Neck: positive: Supple Respiratory/Chest: positive: Crackles, Rales Cardiovascular: positive: Other (Pulseless) Vascular Pulses: Dorsalis-Pedis (R): 0, Doralis-Pedis (L): 0 Gastrointestinal/Abdominal: positive: Soft Male Genitalia: positive: normal genitalia Rectal Exam: positive: heme negative stool, normal exam, normal rectal tone. negative: melena, hemorrhoids Lymphatic: negative: Adenopathy Musculoskeletal: positive: Normal Inspection Extremity: positive: Normal Inspection, Coldness, Cyanosis Integumentary: positive: Pale, Cold Neurologic: negative: Alert, Normal Response, Respond to painful stimul Procedures - Bedside Ultrasound Bedside Ultrasound: Cardiac ED Treatment Course - ADDITIONAL ORDERS Additional order review: Laboratory Results 06/10/19 20:21 POC Glucometer 227 06/10/19 20:21 POC Glucometer 227 Medical Decision Making - Medical Decision Making Yomi Victor is an 83 yo M w a hx of [facility], Memphisey body dementia, HTN, HLD, afib, BPH, CHF, and PVD who [facility] as a cardiac arrest. Upon arrival to the ED he was in asystole. Per EMS he was down in asystole for 30 minutes, received multiple rounds of epinephrine, sodium bicarb , and calcium with no identifiable shockable rhythm. CPR was being performed by the Dionicio machine in the ED. Patient came in intubated and we confirmed ET tube placement in room 10 resuscitation bay. When plaed on the monitor he was still in asystole. We performed a bedisde ultrasound which showed cardiac standtill. His glucose was normal. We continued CPR and coding the patient in the ED, gave him another round of epinephrine but he was persistently in asystole, pulseless and we called the time of at 8:15. - Spoke with patient's at length who is aware of the situation Plan: Will call PCP to ask to perform certificate and medical collections Dr. Chen - Agrees to complete certificate - Requests for certificate to be sent to his office Office: [phone] I spoke with the medical collections who says this is not an ME case Nurse spoke with organ transplant team and this patient is not a candidate bc of age. Family has been spoken to at length, they appreciate our care, and are starting to arrange arrangements. Discharge - Discharge Information Problems reviewed: Yes Clinical Impression/Diagnosis: Condition: Critical Disposition: - Admission No - Follow up/Referral - Patient Discharge Instructions - Post Discharge Activity
== END 2019-06-10 22:33 | disposition expired ==
LOC: JER 20:17
PROC: 5A02216 Assistance with Cardiac Output using Other Pump, Continuous (ICD-10-PCS; principal; 2019-06-10)
PROC: B245ZZZ Ultrasonography of Left Heart (ICD-10-PCS; 2019-06-10)
PROC: B244ZZZ Ultrasonography of Right Heart (ICD-10-PCS; 2019-06-10)
DX: I46.9 Cardiac arrest, cause unspecified (principal); I10 Essential (primary) hypertension; E78.5 Hyperlipidemia, unspecified; I48.91 Unspecified atrial fibrillation; I50.9 Heart failure, unspecified; I73.9 Peripheral vascular disease, unspecified; G31.83 Neurocognitive disorder with Lewy bodies; F02.80 Dementia in other diseases classified elsewhere, unspecified severity, without behavioral disturbance, psychotic disturbance, mood disturbance, and anxiety
CPT/HCPCS: 82962; 99284-25